=== PATIENT | female | born 1985 | race Caucasian/White ===

== ENCOUNTER 2020-05-21 14:20 | Emergency (ER) | payer OTHER, SELFPAY ==
[2020-05-21 14:27] VITALS: BP 105/77; PULSE 101; RESP 16; TEMP 36.8; O2SAT 100
--- NOTE | 2020-05-21 14:48 | ED.DENTAL ---
HPI - Dental/Oral General Chief complaint: Dental/Oral Stated complaint: tooth pain Time Seen by Provider: 05/21/20 14:48 Source: patient and RN notes reviewed Mode of arrival: ambulatory Limitations: no limitations History of Present Illness HPI Narrative: This is a 35 years old female presents to the office for an evaluation of dental pain for the last three days. States, her filling came out about a year ago and she ignores it because it does not bother her. However, she brushed her teeth a few days ago and her affected tooth broke up and it starts to bother her. Denies fever, trouble swallowing or opening her mouth. Related Data Home Medications Medication Instructions Recorded Confirmed [id number] K tablet PO 05/21/20 [Adults Multivitamin] Allergies Allergy/AdvReac Type Severity Reaction Status Date / Time acetaminophen [From Vicodin] AdvReac Nausea and Verified 05/21/20 14:37 Vomiting hydrocodone [From Vicodin] AdvReac Nausea and Verified 05/21/20 14:37 Vomiting Review of Systems Review of Systems: Narrative: CONSTITUTIONAL: Denies fever, chills ENT: Denies rhinorrhea, congestion, sore throat, otalgia. Reports dental pain CARDIOVASCULAR: Denies chest pain, palpitation RESPIRATORY: Denies dyspnea, wheezing, cough GASTROINTESTINAL: Denies abdominal pain, nausea, vomiting SKIN: Denies rash MUSCULOSKELETAL: Denies acute back pain NEUROLOGIC: Denies lightheaded All other systems reviewed are negative, except as documented in HPI. PMFSH Comments At time of signature, I agree with nursing past medical, surgical, social and family history. There is no relevant family history pertinent to the presenting complaint. Exam Narrative: Exam Narrative: GENERAL: This is a well-nourished, well-developed patient, in no apparent distress. EYES: Sclera and conjunctivae normal ENT: External ears normal. Nose and lips normal. Airway patent.The tooth in question is very carious and the gum is swollen and tender around it. There is no facial swelling, cervical or submandibular lymphadenopathy. The patient appears uncomfortable and in pain. CARDIOVASCULAR: Regular rate and rhythm without murmurs, gallops, or rubs. RESPIRATORY: Clear to auscultation. Breath sounds equal bilaterally. No wheezes, rales, or rhonchi. GASTROINTESTINAL: Abdomen soft, non-tender, nondistended. Bowel sounds are active. No hepato-splenomegaly, or palpable masses. No guarding. SKIN: warm, intact with no suspicious lesions or rash, good texture and turgor. NEURO: awake, alert, and oriented to person, place and time. There were no obvious focal neurologic abnormalities. Course Vital Signs Vital signs: Vital Signs Temperature 98.2 F 05/21/20 14:27 Pulse Rate 101 H 05/21/20 14:27 Respiratory Rate 16 05/21/20 14:27 Blood Pressure 105/77 05/21/20 14:27 Pulse Oximetry 100 05/21/20 14:27 Temperature 98.2 F 05/21/20 14:27 Pulse Rate 101 H 05/21/20 14:27 Respiratory Rate 16 05/21/20 14:27 Blood Pressure 105/77 05/21/20 14:27 Pulse Oximetry 100 05/21/20 14:27 MDM - Dental/Oral MDM Narrative Medical decision making narrative: Discharge instructions reviewed with patient, as well as provided in writing per nursing staff. The instructions also include specific and strict return/GO TO THE ER as well as f/u information. All questions have been answered, and the patient deny any further questions with discharge and discharge plan. Differential Diagnosis Differential diagnosis: Likely gingival abscess, dental caries, toothache, dental abscess, fracture of tooth and aphthous ulcer Critical Care Time Critical Care Time Critical Care Time: No Discharge Plan Discharge Clinical Impression: Dental caries Patient Disposition: Home, Self-Care Condition: Stable Instructions: Antibiotic Form, Toothache (ED) Additional Instructions: Take antibiotic until it's gone. Brushing teeth
== END 2020-05-21 15:00 | disposition home or self-care (01) ==
PROVIDERS: Emergency Provider Nurse Practitioner
DX: K02.9 Dental caries, unspecified (principal)
CPT/HCPCS: 99213; G0463

== ENCOUNTER 2020-06-20 17:36 | Emergency (ER) | payer OTHER, SELFPAY ==
[2020-06-20 17:43] VITALS: BP 159/98; PULSE 83; RESP 16; TEMP 36.9; O2SAT 100
--- NOTE | 2020-06-20 17:47 | ED.DENTAL ---
HPI - Dental/Oral General Chief complaint: Dental/Oral Stated complaint: tooth pain Time Seen by Provider: 06/20/20 17:47 Source: patient and RN notes reviewed History of Present Illness HPI Narrative: Patient is a 35-year-old female who presents the urgent care with complaints of dental pain. Patient was seen on May 21 and was prescribed Augmentin at that time for dental caries . Patient states that she did follow-up with her dentist and they were supposed to see her this to remove the tooth or repair it. Patient states that she woke up yesterday morning with increased pain and then woke up this morning with increased swelling and pain. Patient has been using prescription mouthwash that she had leftover and has been taking ibuprofen for the pain. Denies of any known fever, nausea, vomiting. No other acute complaints. No acute distress noted. Patient read the plan of care. Related Data Allergies Allergy/AdvReac Type Severity Reaction Status Date / Time acetaminophen [From Vicodin] AdvReac Nausea and Verified 06/20/20 17:50 Vomiting hydrocodone [From Vicodin] AdvReac Nausea and Verified 06/20/20 17:50 Vomiting Review of Systems Review of Systems: Narrative: CONSTITUTIONAL: Denies fever, chills, or sweats. EYES: Denies visual changes, redness, or discharge. ENT: Denies rhinorrhea, congestion, sore throat, or otalgia. Reports of lower right dental pain CARDIOVASCULAR: Denies chest pain, palpitations, or edema. RESPIRATORY: Denies cough or dyspnea. GASTROINTESTINAL: Denies abdominal pain, nausea, vomiting, or diarrhea. GENITOURINARY: Denies dysuria or hematuria. SKIN: Denies rash or itching. MUSCULOSKELETAL: Denies back pain, joint pain, or myalgia. NEUROLOGIC: Denies headache, numbness, or weakness. All other systems reviewed are negative, except as documented in HPI. PMFSH Comments At the time of my signature, I reviewed and agree with the nursing past medical, surgical, social, and family history. There is no relevant family history pertinent to the patient complaint. Exam Narrative: Exam Narrative: GENERAL: This is a well-nourished, well-developed patient, in no apparent distress. HEAD: normocephalic, atraumatic. EYES: PERRL. Sclera clear/white. Vision is grossly intact. EARS: External ears normal NOSE: External nose normal with no obvious nasal discharge, nares without redness, no rhinorrhea. THROAT: Mucous membranes moist, posterior pharynx clear. DENTAL: Notable localized outer swelling to the right lower jaw, obvious abscess noted to the buccal aspect of the lower right first molar, tooth #30 with a old amalgam filling and noted fracture NECK: Neck supple, non-tender without lymphadenopathy, masses or thyromegaly. SKIN: warm, intact with no suspicious lesions or rash, good texture and turgor. NEURO: awake, alert, and oriented to person, place and time. There were no obvious focal neurologic abnormalities. EXTREMITIES: No clubbing, cyanosis, or edema. Course Vital Signs Vital signs: Vital Signs Temperature 98.5 F 06/20/20 17:43 Pulse Rate 83 06/20/20 17:43 Respiratory Rate 16 06/20/20 17:43 Blood Pressure 159/98 H 06/20/20 17:43 Pulse Oximetry 100 06/20/20 17:43 Temperature 98.5 F 06/20/20 17:43 Pulse Rate 83 06/20/20 17:43 Respiratory Rate 16 06/20/20 17:43 Blood Pressure 159/98 H 06/20/20 17:43 Pulse Oximetry 100 06/20/20 17:43 Reviewed?patient is informed that they may have pre-hypertension or hypertension based on a blood pressure reading in the department. I recommend the patient call the primary care provider listed on their discharge instructions or a physician of their choice this week to arrange follow-up for further evaluation of possible pre-hypertension or hypertension. MDM - Dental/Oral MDM Narrative Medical decision making narrative: Advised the patient to continue using the prescription mouthwash twice a day. Use ibuprofen/Tylenol as needed for
== END 2020-06-20 18:01 | disposition home or self-care (01) ==
PROVIDERS: Emergency Provider Nurse Practitioner Family
DX: K04.7 Periapical abscess without sinus (principal)
CPT/HCPCS: 99213; G0463